=== PATIENT | male | born 1990 | race Caucasian/White ===

== ENCOUNTER 2025-04-14 06:01 | Day surgery (SDC) | payer OTHER | END 2025-04-14 10:10 | disposition home or self-care (01) | LOC: DS 06:01 | PROC: 0JB80ZZ Excision of Abdomen Subcutaneous Tissue and Fascia, Open Approach (ICD-10-PCS; principal; 2025-04-14) | DX: R19.04 Left lower quadrant abdominal swelling, mass and lump (principal); Z87.891 Personal history of nicotine dependence ==